=== PATIENT | male | born 1985 | race Two or more races ===

== ENCOUNTER 2016-11-04 21:30 | Emergency (ER) | payer OTHER ==
[2016-11-04] MEDS ORDERED: IBUPROFEN 600 MG TAB PO ONE (21:45)
[2016-11-04 21:57] VITALS: BP 134/78; PULSE 92; RESP 16; TEMP 99.7; O2SAT 96
[2016-11-04] MEDS ORDERED: IBUPROFEN 200 MG TAB PO ONE ×4 (21:58→22:36)
--- NOTE | 2016-11-04 22:22 | UCPHY ---
H & P Time Seen by Provider: 11/04/16 21:58 Patient Type: Established HPI/ROS: Chief complaint: Cough for 6 days. Not getting better HPI: Previously healthy 29-year-old male with cough that is minimally productive, keeping awake, at times it is us if he runs out of air. Associated this has been influenza like illness symptoms of body aches and moderate fever though he did not checked. He has also had a headache. This is now day 6 or 7. His cough is not improving. He has been trying [id number] cough medicines including Mucinex as well as a generic equivalent to Tylenol p.m. ROS: Constitutional - no fevers or chills. Eyes - no discharge, or injection ENT - no earache, change in hearing, difficulty swallowing, sore throat. Respiratory - No Shortness of breath, phlegm, wheezing or pleuritic chest pain. The cough is dry. no wheezing Musculoskeletal - moderate diffuse body aches, though that is improving Integument - no rashes. Neurological - no headache, numbness, tingling, or paresthesias. No focal motor weakness. Immunological - no swelling or lymphadenopathy 10 point ROS otherwise negative Smoking Status: Never smoked Physical Exam: Gen: Well developed, well nourished. Nontoxic. HEENT: Normocephalic. Ears: TMs are clear. Hearing normal. Eyes: PERRL. No conjunctival injection or pallor. no jaundice. Nose: No nasal discharge. Sinuses are nontender. Throat: Membranes are moist. Oropharynx is without erythema or exudate. Normal phonation. Lungs: Good air entry into both lungs. No rales rhonchi or wheezes. No air hunger. No respiratory distress. Skin: Good color, without pallor. There is no diaphoresis. Skin is warm and dry , without diaphoresis. Intact without rashes Constitutional: Initial Vital Signs Temperature (C) 37.6 C 11/04/16 21:54 Heart Rate 92 11/04/16 21:54 Respiratory Rate 16 11/04/16 21:54 Blood Pressure 134/78 H 11/04/16 21:54 O2 Sat (%) 96 11/04/16 21:54 O2 Delivery Mode Room Air Allergies/Adverse Reactions: No Known Allergies Allergy (Verified 11/04/16 21:52) Home Medications: Medication Instructions Recorded Albuterol [Proventil Inhaler HFA 2 puffs IH QID #1 mdi 11/04/16 (*)] Azithromycin [Zithromax] 250 mg PO DAILY #6 tab 11/04/16 Benzonatate 200 mg PO TID PRN #28 capsule 11/04/16 Mucinex 11/04/16 Medical Decision Making - Diagnostics Imaging: Imaging Impressions Chest X-Ray 11/04/16 21:57 Impression: Clear lungs. No pneumonia. Interpretation above by the radiologist. [facility] Course/Re-evaluation: The patient is giving some signs to suggest this might well be pertussis. 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 Thereby most likely was a Tdap any was be protected. Nonetheless he does have some coughing related extreme sense of shortness of breath as if he was running out of air which may be construed as the whoop of whooping cough. Thereby will test that. Also has as this is the acute phase would go through a course of Zithromax Differential Diagnosis: Diagnostic considerations include, but are not limited to, the following: URI, sinusitis, pharyngitis, otitis media, pneumonia, allergy, influenza. - Data Points Laboratory Results: 11/04/16 22:40 Bordetella pertussis Spec Source Pending B. pertussis DNA (PCR) Pending B.parapertussis DNA PCR Pending Medications Given: Discontinued Medications Ibuprofen (Motrin) 200 mg PO EDNOW ONE Stop: 11/04/16 21:59 Last Admin: 11/04/16 22:10 Dose: 200 mg Ibuprofen (Motrin) 400 mg PO EDNOW ONE Stop: 11/04/16 21:59 Last Admin: 11/04/16 22:10 Dose: 400 mg Departure - Departure Disposition: Home, Routine, Self-Care Clinical Impression: Asthmatic bronchitis Qualifiers: Asthma severity: moderate persistent Asthma complication type: with acute exacerbation Qualified Code(s): J45.41 - Moderate persistent asthma with (acute ) exacerbation Condition: Good Additional Instructions: For the cough use OTC Delsym DM for tsp twice daily or benzonatate for the cough When using the Delsym or the benzonatate do not use other [id number] cold medicine that you are already using Take the Proventil inhaler 4 times daily for the next 2 weeks so as to decrease the amount of coughing Zithromax as the antibiotic Referrals: Marline Ji MD [Primary Care Provider] - As per Instructions Prescriptions: Albuterol [Proventil Inhaler HFA (*)] 2 puffs IH QID #1 mdi Azithromycin [Zithromax] 250 mg PO DAILY #6 tab Benzonatate 200 mg PO TID PRN #28 capsule PRN Reason: Cough, Moderate - PQRS PQRS Measurement: NA
[2016-11-07 17:04] LABS: B.PARAPERTUSSIS PCR Negative; B.PERTUSSIS PCR Negative
== END 2016-11-04 22:57 | disposition home or self-care (01) ==
LOC: CED 21:30
DX: J45.41 Moderate persistent asthma with (acute) exacerbation (principal)
CPT/HCPCS: 71020-PO; 87798-90; G0463-PO